=== PATIENT | female | born 1970 | race African-American/Black ===

== ENCOUNTER 2018-07-05 05:06 | Inpatient (IN) | payer OTHER ==
[2018-07-02 12:39] VITALS: BMI 32.8
[2018-07-05] MEDS ORDERED: BUPIVACAINE HCL/PF 0.5% (5MG/ML) 10 ML VIAL ONE (09:03)
[2018-07-05] MEDS ORDERED: MIDAZOLAM HCL 2 MG/2 ML SINGLE DOSE VIAL ONE ×2 (09:04)
[2018-07-05] MEDS ORDERED: ROCURONIUM BROMIDE 50 MG/5 ML VIAL ONE (11:17)
[2018-07-05] MEDS ORDERED: PROPOFOL 20 ML ONE (11:17)
[2018-07-05] MEDS ORDERED: fentaNYL CITRATE 250 MCG/5 ML VIAL ONE (11:17)
[2018-07-05] MEDS ORDERED: oxyCODONE HCL 5 MG TABLET PO PRN ×2 (11:18)
[2018-07-05] MEDS ORDERED: ACETAMINOPHEN 1000 MG/100 ML VIAL (NON FORMULARY) IVPB ONE (11:18)
[2018-07-05] MEDS ORDERED: ONDANSETRON 4 MG/2 ML VIAL IVPUSH PRN ×2 (11:18→13:43)
[2018-07-05] MEDS ORDERED: LIDOCAINE HCL/PF 2% SDV 5ML VIAL ONE (11:20)
[2018-07-05] MEDS ORDERED: LACTATED RINGERS SOLUTION 1,000 ML IV SCH (11:30)
[2018-07-05] MEDS ORDERED: DEXAMETHASONE SOD PHOSPHATE 4 MG/1 ML VIAL ONE (11:32)
[2018-07-05] MEDS ORDERED: ceFAZolin SODIUM 1 GM VIAL ONE (11:32)
[2018-07-05] MEDS ORDERED: ceFAZolin SODIUM 1 GM VIAL IVPB ONE (11:42)
[2018-07-05] MEDS ORDERED: DESFLURANE GAS 240 ML BOTTLE IH ONE (12:42)
[2018-07-05] MEDS ORDERED: NEOSTIGMINE METHYLSULFATE 0.5 MG/ML - 10 ML MDV ONE (12:58)
[2018-07-05] MEDS ORDERED: GLYCOPYRROLATE 0.2 MG/1 ML VIAL ONE ×2 (13:01→13:24)
[2018-07-05] MEDS ORDERED: BISACODYL 5 MG TABLET.DR (FP) PO PRN (13:43)
--- NOTE | 2018-07-05 13:55 | OP ---
Operative Note - Note: Operative Date: 07/05/18 Pre-Operative Diagnosis: leiomyomatous uterus Operation: open abdominal myomectomy, right ovarian cystectomy Surgeon: Lisbeth Ackerman Ring Packer: Yari Sparks Anesthesiologist/VICE PRESIDENT INDUSTRIAL RELATIONS: Jie Rice Specimens Removed: uterine fibroids, right ovarian cyst Estimated Blood Loss (mls): 50 Drains, Volume Out (mls): 500 (selby) Fluid Volume Replaced (mls): 1,000 Operative Report Dictated: Yes
[2018-07-05] MEDS ORDERED: VASOPRESSIN 20 UNITS/ML VIAL IV ONE (14:12)
--- NOTE | 2018-07-05 14:31 | SURG ---
Surgery Conductor Sleeping Car Note Conductor Sleeping Car: Yari Sparks PA-C Date of Service: 07/05/18 Diagnosis: leiomyomatous uterus Procedure: open abdominal myomectomy, right ovarian cystectomy I was present for the entirety of the operative procedure. For further detail, please refer to operative report. Visit type - Case Type Case Type: Scheduled - Emergency Emergency Visit: No - New patient This patient is new to me today: Yes Date on this admission: 07/05/18
[2018-07-05] MEDS: IBUPROFEN 800 MG/8 ML IJ IVPB SCH (17:34)
[2018-07-05] MEDS: CEFAZOLIN 1 GM/D5W 1 GM/50 ML BAG IVPB SCH (21:00)
[2018-07-05 21:02] LABS: HEMATOCRIT 33.2 % (32.4-45.2); HEMOGLOBIN 11.3 GM/dL (10.7-15.3); MCH 28.5 pg (25.7-33.7); MEAN CELL VOLUME 83.9 fl (80-96); PLATELET COUNT 200 K/MM3 (134-434); RBC 3.96 M/mm3 (3.60-5.2); RDW 14.6 % (11.6-15.6); WHITE BLOOD COUNT 11.4 K/mm3 (4.0-10.0)
[2018-07-05 21:35] LABS: ANION GAP 8 MMOL/L (8-16); BLOOD UREA NITROGEN 8 mg/dL (7-18); CALCIUM 8.5 mg/dL (8.5-10.1); CHLORIDE 101 mmol/L (98-107); CO2 25 mmol/L (21-32); CREATININE 0.9 mg/dL (0.55-1.3); GLUCOSE,RANDOM 131 mg/dL (74-106); POTASSIUM 4.1 mmol/L (3.5-5.1); SODIUM 134 mmol/L (136-145)
--- NOTE | 2018-07-05 21:37 | OP ---
DATE OF OPERATION: 07/05/2018 PREOPERATIVE DIAGNOSIS: Leiomyomatous uterus. OPERATION: Abdominal myomectomy and right ovarian cystectomy. SURGEON: Lisbeth Ackerman MD TELESALES MANAGER: JONG Anderson ANESTHESIA: General. ANESTHESIOLOGIST: DONA Katz FINDINGS: Uterus about 12 cm in size and also a 2-cm paraovarian right cyst. PROCEDURE: Patient was taken to the operating room, placed in supine position, prepped and draped in the usual sterile fashion. Timeout was performed in accordance with hospital regulation. Pfannenstiel skin incision was made with a scalpel. Cautery was then used to go through the layers of abdominal wall to the level of the fascia. The fascia was cut in the midline, and cautery was then used to open the fascia in smiling fashion. Enrique was then used to bluntly and sharply dissect the rectus muscle off the fascia. Muscle split in the midline. Peritoneal cavity was then entered and carried upward and downward. The leiomyomatous uterus, 12 cm in size, was exteriorized. Tourniquet was placed in the clear space of the broad ligament. Noted about a 9-cm posterior intramural myoma. Pitressin was infiltrated in the serosa of the uterus. Cautery was then used to make an 11-cm posterior incision transversely down to the level of the fibroid. Using sharp and blunt technique, the 9-cm myoma was exteriorized and enucleated out. Uterine muscle was then closed using 0 Vicryl suture in continuous and locking in 2 layers using 0 Vicryl suture, and then, serosa was closed using 2-0 V-Loc suture. Hemostasis was achieved. A 3-cm posterior myoma was seen on the right side. Cautery was then used to enter the capsule of the myoma and enucleate it out the fibroid. Incision was then closed also in layers using 0 Vicryl suture in muscle and 2-0 Vicryl V-Loc suture on the serosa. Attention was then drawn to the anterior aspect of the uterus where 2 myomas were seen anteriorly, about 4 cm in size, one 3 cm, another maybe 2 cm. Cautery was then used to cut the serosa of the uterus, and myoma was then enucleated out using blunt and sharp techniques. The muscle was then closed in layers using 0 Vicryl suture continuous and locking and 2-0 V-Loc on the serosa of the uterus. Another posterior 4-cm myoma was seen close to the cervix. A transverse 3-cm incision was made, and the myoma was enucleated out using sharp technique. Muscle was closed using 0 Vicryl suture in continuous stitch and then imbricating stitch using 2-0 V-Loc suture. Hemostasis was achieved on all incisions. A 2-cm paraovarian cyst was seen on the right side, and ovarian cystectomy was performed and submitted to Pathology. Tubes and ovaries were noted to be normal. There was a calcified ovary noted on the left side. Uterus was then interiorized after Interceed placed on the large posterior incision and sutured in place using 2-0 Vicryl suture. The uterus interiorized. Peritoneum closed using 2-0 Vicryl suture in a continuous fashion. Muscles approximated in midline using 2-0 Vicryl. Fascia was then closed using 0 Vicryl suture in 2 parts. Interrupted sutures on the subcutaneous were then done using 0 Vicryl suture, and skin was then closed using 3-0 Vicryl in subcuticular fashion. Wound was washed and dressed. Patient had tolerated the procedure well. Estimated blood loss: 50 mL. Savana [id number] MTDD
[2018-07-05] MEDS: ACETAMINOPHEN 325 MG TABLET (FP) PO SCH (22:04)
[2018-07-06] MEDS: IBUPROFEN 800 MG/8 ML IJ IVPB SCH (00:32)
[2018-07-06] MEDS: CEFAZOLIN 1 GM/D5W 1 GM/50 ML BAG IVPB SCH (02:10)
[2018-07-06] MEDS: ACETAMINOPHEN 325 MG TABLET (FP) PO SCH ×4 (04:45→21:34)
[2018-07-06 07:17] LABS: HEMATOCRIT 29.6 % (32.4-45.2); MCHC 33.7 g/dl (32.0-36.0); MEAN PLT VOLUME 9.5 fl (7.5-11.1); PLATELET COUNT 191 K/MM3 (134-434); RBC 3.57 M/mm3 (3.60-5.2); RDW 14.7 % (11.6-15.6); WHITE BLOOD COUNT 11.2 K/mm3 (4.0-10.0)
[2018-07-06 07:46] LABS: ANION GAP 8 MMOL/L (8-16); BLOOD UREA NITROGEN 12 mg/dL (7-18); CALCIUM 8.2 mg/dL (8.5-10.1); CHLORIDE 105 mmol/L (98-107); CO2 25 mmol/L (21-32); CREATININE 0.8 mg/dL (0.55-1.3); GLUCOSE,RANDOM 80 mg/dL (74-106); POTASSIUM 3.7 mmol/L (3.5-5.1); SODIUM 138 mmol/L (136-145)
[2018-07-06] MEDS ORDERED: IBUPROFEN 600 MG TABLET (FP) PO PRN (07:49)
--- NOTE | 2018-07-06 08:26 | PN ---
Progress Note (short form) - Note Progress Note: POD#1 Pt without any complaints of CP/SOB. Slight upper abd/epigastric discomfort. No nausea or emesis. Vital Signs Period Temp Pulse Resp BP Sys/Pedro Pulse Ox Last 24 Hr 97.7 F-98.6 F 72-92 14-22 102-164/63-76 96-100 Selby:1800ml clear urine GEN: A&0x3, NAD CV: RRR Lungs: CTA b/l anteriorly ABD: soft, non-distended, inc tenderness. Inc c/d/i. LE: SCD/TEds in place. NO swelling or calf tenderness. CBC, BMP 07/06/ 06:45 07/06/18 06:45 Laboratory Tests 07/05/18 07/05/18 20:15 20:15 WBC 11.4 H Hgb 11.3 Hct 33.2 Plt Count 200 Sodium 134 L Potassium 4.1 Chloride 101 Carbon Dioxide 25 Anion Gap 8 BUN 8 Creatinine 0.9 A/P: 47 yo female s/p open abdominal myomectomy Clears as tolerated today Simethicon for gas as needed Remove selby after oob to chair DVT ppx with ambulation, SCD/teds and lovenox sq Pisano IV caldor to ora motrin as needed tyelnol schedule and narcotics for breat thru pain
[2018-07-06] MEDS ORDERED: IBUPROFEN 400 MG TABLET (FP) PO PRN (08:35)
--- NOTE | 2018-07-06 09:41 | PN ---
Progress Note (short form) - Note Progress Note: POD1 s/p myomectomy with TAP block. Pt comfortable, no pain noted; no anesthetic issues/complications
[2018-07-06] MEDS: ENOXAPARIN NA (PORCINE) 40 MG/0.4 ML DISP.SYRIN SQ SCH (10:52)
[2018-07-06] MEDS: SIMETHICONE 80 MG TAB.CHEW (FP) PO PRN ×2 (10:52→13:49)
[2018-07-06] MEDS: FERROUS SO4 325 MG TABLET (FP) PO SCH (10:55)
--- NOTE | 2018-07-06 22:24 | PN ---
Progress Note (short form) - Note Progress Note: Pt doing well no flatus SP myomectomy plan DC home if paases flatus Agreed and reviewed PA note CBC WBC 11.2 K/mm3 (4.0-10.0) H 07/06/18 06:45 RBC 3.57 M/mm3 (3.60-5.2) L 07/06/18 06:45 Hgb 10.0 GM/dL (10.7-15.3) L 07/06/18 06:45 Hct 29.6 % (32.4-45.2) L 07/06/18 06:45 MCV 83.0 fl (80-96) 07/06/18 06:45 MCH 28.0 pg (25.7-33.7) 07/06/18 06:45 MCHC 33.7 g/dl (32.0-36.0) 07/06/18 06:45 RDW 14.7 % (11.6-15.6) 07/06/18 06:45 Plt Count 191 K/MM3 (134-434) 07/06/18 06:45 MPV 9.5 fl (7.5-11.1) 07/06/18 06:45 Vital Signs (72 hours) 07/05/18 07/05/18 07/05/18 09:28 09:30 13:35 Temperature 98 F 98.6 F Pulse Rate 75 86 Respiratory 18 15 Rate Blood Pressure 132/76 164/73 O2 Sat by Pulse 96 100 Oximetry (%) 07/05/18 07/05/18 07/05/18 13:45 14:00 14:15 Temperature Pulse Rate 79 73 72 Respiratory 22 H 22 H 21 H Rate Blood Pressure 147/69 133/68 134/64 O2 Sat by Pulse 100 100 100 Oximetry (%) 07/05/18 07/05/18 07/05/18 14:30 14:45 15:00 Temperature Pulse Rate 72 75 73 Respiratory 21 H 19 16 Rate Blood Pressure 120/66 124/76 135/70 O2 Sat by Pulse 100 100 Oximetry (%) 07/05/18 07/05/18 07/05/18 15:15 15:30 15:40 Temperature 98.0 F Pulse Rate 84 77 82 Respiratory 18 19 14 Rate Blood Pressure 129/63 135/70 122/76 O2 Sat by Pulse 100 100 Oximetry (%) 07/05/18 07/05/18 07/05/18 16:00 16:15 21:00 Temperature 97.7 F 97.7 F Pulse Rate 82 82 Respiratory 18 18 Rate Blood Pressure 133/74 133/74 O2 Sat by Pulse 100 100 100 Oximetry (%) 07/05/18 07/05/18 07/06/18 21:30 22:00 01:09 Temperature 98.6 F 98.6 F 98.3 F Pulse Rate 92 H 92 H 77 Respiratory 20 20 20 Rate Blood Pressure 120/75 120/75 119/69 O2 Sat by Pulse 100 Oximetry (%) 07/06/18 07/06/18 07/06/18 06:30 11:31 14:00 Temperature 98.0 F 99.5 F 98.6 F Pulse Rate 84 85 82 Respiratory 20 20 20 Rate Blood Pressure 102/68 119/71 110/68 O2 Sat by Pulse Oximetry (%) 07/06/18 22:00 Temperature 98.6 F Pulse Rate 76 Respiratory 20 Rate Blood Pressure 116/74 O2 Sat by Pulse Oximetry (%)
[2018-07-07] MEDS ORDERED: BISACODYL 10 MG SUPP.RECT RC PRN (03:37)
[2018-07-07] MEDS: ACETAMINOPHEN 325 MG TABLET (FP) PO SCH ×3 (03:40→16:20)
[2018-07-07] MEDS: SIMETHICONE 80 MG TAB.CHEW (FP) PO PRN ×3 (05:52→16:19)
--- NOTE | 2018-07-07 07:41 | PN ---
Progress Note (short form) - Note Progress Note: POD #2 This morning, patient sitting in chair at bedside. Just returned from ambulating (RN assist) to bathroom where she voided. Patient c/o a lot of abd pain (incisional, to be expected). Also, c/o inability to pass flatus. Apparently, RN had to call attending at 3AM and obtain order for Ducolax suppository as PO failed. Still unable to pass flatus. Denies n/v/f/c, CP, palpitations, SOB, MOTLEY, BM or vaginal bleeding. Last Vital Signs Temp Pulse Resp BP Pulse Ox 99.2 F 83 20 130/77 100 // 03:15 07/07/18 03:15 07/07/18 03:15 07/07/18 03:15 07/05/18 22:00 PE Gen: mild discomfort but not in distress ABD: dressing c/d/i. no palpable hematoma. Bowel sounds sluggish. LE: SCDs bilat. No tenderness. +2 DP/PT, warm bilat Problem List - Problems (1) Leiomyoma Assessment/Plan: 47 yo female POD #1 s/p Open abdominal myomectomy, right ovarian cystectomy Diet as tolerated DVT ppx via ambulation, SCD & Lovenox Dulcolax Can dc home once she passes flatus Above plan discussed with Dr. Ackerman and agrees. Code(s): D21.9 - BENIGN NEOPLASM OF CONNECTIVE AND OTHER SOFT TISSUE, UNSP
[2018-07-07] MEDS: ENOXAPARIN NA (PORCINE) 40 MG/0.4 ML DISP.SYRIN SQ SCH (10:42)
[2018-07-07] MEDS: DOCUSATE SODIUM 100 MG CAPSULE (FP) PO PRN ×2 (10:42→16:20)
[2018-07-07] MEDS: FERROUS SO4 325 MG TABLET (FP) PO SCH (10:44)
--- NOTE | 2018-07-07 13:42 | PATH ---
Surgical Pathology Report Patient Name: JERMAN BARCENAS [facility]. Rec. #: [id number] /Age/Gender: 1970 (Age: 47) / F Account: [id number] Location: [facility] OBS/GRAPHIC DESIGN PROFESSOR Taken: 07/05/2018 Received: 07/06/2018 Reported: 07/07/2018 Physicians: Lisbeth Ackerman M.D. Specimen(s) Received A: UTERINE MYOMAS B: RIGHT OVARIAN CYST Clinical History Uterine fibroids Final Diagnosis A. UTERUS, ABDOMINAL MYOMECTOMY: LEIOMYOMATA, 351 GRAM AGGREGATE WEIGHT. B. RIGHT OVARIAN CYST, CYSTECTOMY: BENIGN SEROUS CYST. Electronically Signed Vik Ann M.D. Gross Description A. Received in formalin labeled "uterine myomas," is a 351 g aggregate of 5 arriola, rubbery nodules ranging from 2.5-10.0 cm in greatest dimension, consistent with fibroids. The cut surface of the fibroids is arriola and rubbery with a whorled architecture. No areas of hemorrhage or necrosis are identified. Roof Promenade Tile Setter sections are submitted in 9 cassettes as follows: 1-4-four smaller fibroids; 5-9-largest fibroid. B. Received in formalin labeled "right ovarian cyst," is a 1.6 x 1.1 x 0.7 cm arriola, translucent, intact cyst. The outer surface is smooth. The lumen contains clear serous fluid. The inner lining of the cyst is smooth. The cyst is serially sectioned and entirely submitted in one cassette. 07/06/201807/06/2018
[2018-07-07 14:58] VITALS: BP 113/56; PULSE 92; TEMP 98.6
--- NOTE | 2018-07-12 22:44 | DS ---
"Physical Exam-[facility] Vital Signs: Vital Signs Temperature 98.6 F 07/07/18 14:00 Pulse Rate 92 H 07/07/18 14:00 Respiratory Rate 20 07/07/18 14:00 Blood Pressure 113/56 L 07/07/18 14:00 O2 Sat by Pulse Oximetry (%) 100 07/05/18 22:00 Constitutional: Yes: Well Nourished, No Distress Respiratory: Yes: WNL Gastrointestinal: Yes: WNL, Normal Bowel Sounds, Soft Pelvis: Yes: WNL Breast(s): Yes: WNL Musculoskeletal: Yes: WNL Extremities: Yes: WNL Edema: No Wound/Incision: Yes: Clean/Dry, Well Approximated Neurological: Yes: WNL, Alert, Oriented Labs: CBC, BMP 07/06/18 06:45 07/06/18 06:45 Discharge Summary Reason For Visit: FIBROIDS Procedures: Principal: Abdominal myomectomy. Ovarian cystectomy Hospital Course: unremarkable Condition: Good - Instructions Diet, Activity, Other Instructions: Dr. Lisbeth Ackerman Medical Pathologist discharge instructions Physical activity Resume your normal everyday activity as tolerated no heavy lifting or exercise until seen by your surgeon. You may walk unlimited maggy of and climb stairs. You may resume driving the car when you feel safe and comfortable behind the wheel. No sexual activity as instructed by Dr. Ackerman. Wound care If you have a bandage, leave it on, and keep dry for 48-72 hours. After that time discard the outer bandage. If they are tapes on the skin under the out of bandage leave them in place. They will peel off in the next 7 to 10 days. Do Not Peel them off. You may shower the day after surgery. If there are tapes present on the skin, you may shower over them. Diet There are no dietary restrictions. Eat healthy, high-fiber foods. Drink 6 to 8 glasses of liquid each day. This will assist in keeping your bowels are regular. Pain management You may take Tylenol or acetaminophen or Ibuprofen (for example, Motrin, Advil etc.) from my pain prescription medication is ordered should be taken as prescribed for moderate to severe pain. Call Dr. Ackerman for any of the following: Severe pain not relieved by medication Fever of 101 or higher Excessive bleeding or drainage on dressing Inability to urinate Call the office at [phone] for an appointment in seven days. This report was requested by: Yari Sparks | Reference #: [id number] Disposition: HOME - Home Medications Comprehensive Discharge Medication List: Ambulatory Orders Ascorbic Acid [Vitamin C] 500 mg PO DAILY 07/02/18 Ferrous Gluconate [Iron] 250 mg PO DAILY 07/02/18"
== END 2018-07-07 16:35 | disposition home or self-care (01) | DRG 743 ==
LOC: JSAMEDAYSX 05:06 → J3W 16:22
PROVIDERS: ADMIT Obstetrics & Gynecology; ATTEND Obstetrics & Gynecology
PROC: 0UB90ZZ Excision of Uterus, Open Approach (ICD-10-PCS; 2018-07-05)
PROC: 0UB00ZZ Excision of Right Ovary, Open Approach (ICD-10-PCS; principal; 2018-07-05 10:30)
DX: D25.1 Intramural leiomyoma of uterus (principal); N83.201 Unspecified ovarian cyst, right side
CPT/HCPCS: 36415; 80048; 84703; 85027; 86850; 86900; 86901; 88305-TC; 94010; 94760

== ENCOUNTER 2024-09-15 06:47 | Day surgery (SDC) | payer OTHER ==
[2024-09-15 07:30] VITALS: RESP 18; BMI 31.2
[2024-09-15 09:15] VITALS: TEMP 97.2
[2024-09-15 09:47] VITALS: BP 154/63; PULSE 64
== END 2024-09-15 09:57 | disposition home or self-care (01) ==
LOC: JASU-ENDO 06:47
PROVIDERS: ATTEND Internal Medicine Gastroenterology
PROC: 0DBN8ZZ Excision of Sigmoid Colon, Via Natural or Artificial Opening Endoscopic (ICD-10-PCS; 2024-09-15)
PROC: 0DB98ZX Excision of Duodenum, Via Natural or Artificial Opening Endoscopic, Diagnostic (ICD-10-PCS; 2024-09-15)
PROC: 0DB68ZX Excision of Stomach, Via Natural or Artificial Opening Endoscopic, Diagnostic (ICD-10-PCS; 2024-09-15)
PROC: 0DBK8ZZ Excision of Ascending Colon, Via Natural or Artificial Opening Endoscopic (ICD-10-PCS; principal; 2024-09-15 08:30)
DX: Z12.11 Encounter for screening for malignant neoplasm of colon (principal); D12.2 Benign neoplasm of ascending colon; D12.5 Benign neoplasm of sigmoid colon; D12.7 Benign neoplasm of rectosigmoid junction; K29.50 Unspecified chronic gastritis without bleeding; B96.81 Helicobacter pylori [H. pylori] as the cause of diseases classified elsewhere
CPT/HCPCS: 81025; 88305-TC; 88341-TC; 88342-TC